=== PATIENT | female | born 1960 | race Asian ===

== ENCOUNTER 2023-03-16 11:56 | Emergency (ER) | payer BC, OTHER ==
[2023-03-16 12:37] VITALS: RESP 22; BMI 21.9
[2023-03-16 13:34] LABS: BASO % 1.1 % (0-2.0); EOS % 1.7 % (0-4.5); HEMATOCRIT 38.7 % (32.4-45.2); HEMOGLOBIN 12.2 GM/dL (10.7-15.3); LYMPH % 27.4 % (8-40); MCH 29.7 pg (25.7-33.7); MCHC 31.4 g/dl (32.0-36.0); MEAN CELL VOLUME 94.6 fl (80-96); MEAN PLT VOLUME 8.2 fl (7.5-11.1); MONO % 12.7 % (3.8-10.2); NEUT % 57.1 % (42.8-82.8); PLATELET COUNT 289 10^3/uL (134-434); RBC 4.09 M/mm3 (3.60-5.2); RDW 17.4 % (11.6-15.6); WHITE BLOOD COUNT 3.6 K/mm3 (4.0-10.0)
[2023-03-16 14:01] LABS: CHLORIDE 93 mmol/L (98-107)
[2023-03-16 14:03] LABS: ALBUMIN 3.2 g/dl (3.4-5.0); CALCIUM 8.4 mg/dL (8.5-10.1); CO2 24 mmol/L (21-32)
[2023-03-16 14:05] LABS: BLOOD UREA NITROGEN 7.9 mg/dL (7-18); GLUCOSE,RANDOM 100 mg/dL (74-106)
[2023-03-16 14:08] LABS: CREATININE 0.7 mg/dL (0.55-1.3)
[2023-03-16 14:39] LABS: ANION GAP -9 MMOL/L (8-16); POTASSIUM > 10.0 mmol/L (3.5-5.1); SODIUM 109 mmol/L (136-145)
[2023-03-16] MEDS ORDERED: ALBUTEROL SO4 2.5/IPRATROPIUM 0.5 INH SOL 3 ML VIAL.NEB. NEB ONE ×2 (14:53→14:56)
[2023-03-16 15:58] LABS: ALBUMIN 3.7 g/dl (3.4-5.0); CALCIUM 9.1 mg/dL (8.5-10.1)
[2023-03-16 16:01] LABS: CREATININE 0.6 mg/dL (0.55-1.3)
[2023-03-16 16:04] LABS: BILIRUBIN,TOTAL 0.6 mg/dL (0.2-1)
[2023-03-16 16:16] LABS: TOT PROT 7.5 g/dl (6.4-8.2)
[2023-03-16 16:18] VITALS: BP 133/65; PULSE 69
== END 2023-03-16 18:05 | disposition home or self-care (01) ==
LOC: JER 11:56
PROC: 3E0F7GC Introduction of Other Therapeutic Substance into Respiratory Tract, Via Natural or Artificial Opening (ICD-10-PCS; principal; 2023-03-16)
DX: R05.9 Cough, unspecified (principal); R00.1 Bradycardia, unspecified
CPT/HCPCS: 0241U-QW; 36415; 71046-TC-FY; 80053; 82962; 84484; 85025; 93005; 93010; 99285-25